=== PATIENT | male | born 1940 | race Caucasian/White ===

== ENCOUNTER 2025-07-19 14:32 | Outpatient (CLI) | payer BC, MEDICAID ==
[~2025-07-19] VITALS: Ht 174 cm; Wt 63.5 kg
[~2025-07-19 14:32] MED LIST: ASPI-611 PO; GABA-1405 PO; METH-603 PO; MULT-1085 PO; OXYC10TA47 PO; VITAMIN D PO
[2025-07-19 14:48] LABS: ABG BASE EXCESS -1.8 mmol/L (-2.0-3.0); ABG HCO3 21.4 mmol/L (21.0-28.0); ABG OXYGEN SATURATION 96.4 % (94.0-98.0); ABG PCO2 (T) 31.1 mmHg (35.0-48.0); ABG PH (T) 7.456 (7.350-7.450); ABG PO2 (T) 87.2 mmHg (83.0-108.0); ALLEN'S TEST POSITIVE; FCOHb 0.3 % (0.5-1.5); FHHb 3.6 % (0.0-5.0); FIO2 21.0 mmHg/%; FMetHb 0.3 % (0.0-1.5); FO2Hb 95.8 % (94.0-98.0); MODE ROOM AIR; PATIENT TEMPERATURE 37.0; TOTAL HEMOGLOBIN 10.9 G/dl (13.5-17.5)
[2025-07-19] MEDS: albuterol 2.5 MG/3 ML nebule NEB ONE (15:27)
[2025-07-19 15:31] VITALS: PULSE 79; RESP 14; O2SAT 96
[2025-07-19 15:45] VITALS: PULSE 86; RESP 15
== END 2025-07-19 23:59 | disposition home or self-care (01) ==
LOC: RT 14:32
PROVIDERS: ATTEND Internal Medicine Critical Care Medicine
DX: J44.9 Chronic obstructive pulmonary disease, unspecified (principal)
CPT/HCPCS: 36600; 82803; 85018; 94060; 94727; 94729; 94760